=== PATIENT | male | born 1980 | race Caucasian/White ===

== ENCOUNTER 2022-03-06 09:28 | Emergency (ER) | payer OTHER, MEDICAID ==
[~2022-03-06] VITALS: Ht 185.4 cm; Wt 68.0 kg
[2022-03-06 09:30] VITALS: BP_SYST 137
--- NOTE | 2022-03-06 09:35 | NUR ---
Placed in room 6 . Placed on threat monitoring analyst, blood pressure machine and pulse oximeter. To gown for exam. Side rails up.
--- NOTE | 2022-03-06 09:40 | NUR ---
ER DR. CHEEK EXAMINING PT
[2022-03-06] MEDS ORDERED: cefTRIAXone 1 GM VIAL IM ONE (09:45)
--- NOTE | 2022-03-06 09:45 | NUR ---
I&D PERFORMED BY ER DR. CHEEK, PT TOLERATED WELL
[2022-03-06] MEDS ORDERED: TRAM50TA PO (09:47)
[2022-03-06] MEDS ORDERED: SULF1TAB48 PO (09:47)
--- NOTE | 2022-03-06 10:26 | NUR ---
Patient given written and verbal discharge instructions and verbalizes understanding. ER MD discussed with patient the results and treatment provided. Patient in stable condition. ID arm band removed. Rx of BACTRIM AND TRAMADOL given. Patient educated on pain management and to follow up with PMD. Pain Scale 0/10. Opportunity for questions provided and answered. Medication side effect fact sheet provided.
== END 2022-03-06 10:27 | disposition home or self-care (01) ==
LOC: SED 09:28
DX: L02.512 Cutaneous abscess of left hand (principal); K21.9 Gastro-esophageal reflux disease without esophagitis; I10 Essential (primary) hypertension; Z88.1 Allergy status to other antibiotic agents; Z79.899 Other long term (current) drug therapy
CPT/HCPCS: 99283; 26010; 96372; J0696